=== PATIENT | male | born 1975 | race Caucasian/White ===

== ENCOUNTER 2021-01-07 17:07 | Outpatient (CLI) | payer OTHER | END 2021-01-07 17:08 | disposition home or self-care (01) | LOC: COV 17:07 | PROVIDERS: ATTEND Family Medicine | DX: Z20.822 Contact with and (suspected) exposure to COVID-19 (principal) ==

== ENCOUNTER 2021-05-16 18:57 | Outpatient (CLI) | payer SELFPAY | END 2021-05-16 18:58 | disposition home or self-care (01) | LOC: COV 18:57 | PROVIDERS: ATTEND Family Medicine | DX: Z20.822 Contact with and (suspected) exposure to COVID-19 (principal) ==